=== PATIENT | male | born 1990 | race Caucasian/White ===

== ENCOUNTER → 2017-05-16 | Outpatient (CLI) | payer OTHER | LOC: CARD 09:57 | PROVIDERS: ATTEND Nurse Practitioner Family | DX: R01.1 Cardiac murmur, unspecified (principal) | CPT/HCPCS: 93306 ==

== ENCOUNTER → 2017-06-18 | Outpatient (CLI) | payer OTHER ==
--- NOTE | 2017-06-18 12:53 | Diagnostic Imaging Report ---
PROCEDURE: US Thyroid. TECHNIQUE: Multiple real-time grayscale images were obtained of the thyroid in various projections. INDICATION: Elevated TSH. FINDINGS: The right thyroid lobe is 5.4 x 2 x 1.4 cm. The left lobe is 4.9 x 1.7 x 1.6 cm. There is slight heterogeneity in the thyroid gland and mild increased vascularity with no discrete focal lesion. IMPRESSION: Mildly enlarged and vascular thyroid gland with minimal heterogeneity. This could relate to early multinodular goiter or thyroiditis. Dictated by: Dictated on workstation # [id number]
== END ==
LOC: RAD 10:48
PROVIDERS: ATTEND Nurse Practitioner Family
DX: R94.6 Abnormal results of thyroid function studies (principal)
CPT/HCPCS: 76536

== ENCOUNTER → 2018-06-05 | Outpatient (CLI) | payer OTHER ==
--- NOTE | 2018-06-05 14:03 | Diagnostic Imaging Report ---
EXAMINATION: Thyroid ultrasound. TECHNIQUE: Multiple real-time grayscale images were obtained of the thyroid in various projections. INDICATION: Elevated TSH. FINDINGS: The previous thyroid ultrasound exam of 06/18/2017 noted that the thyroid gland was mildly enlarged with minimal heterogeneity. On this study, the thyroid gland is prominent with the right lobe measuring 5.4 x 1.6 x 1.5 cm while the left lobe is estimated to be 5.0 x 1.5 x 1.3 cm. There is still no evidence for a discrete solid or cystic mass within either lobe. IMPRESSION: When compared to the prior exam, there does not appear to have been any significant change. The thyroid gland is prominent, but there is no discrete solid or cystic mass within either lobe. Dictated by: Dictated on workstation # [id number]
== END ==
LOC: RAD 08:21
PROVIDERS: ATTEND Nurse Practitioner Family
DX: R94.6 Abnormal results of thyroid function studies (principal)
CPT/HCPCS: 76536